=== PATIENT | male | born 1980 | race Caucasian/White ===

== ENCOUNTER 2024-02-24 10:27 | Inpatient (IN) | payer OTHER, SELFPAY ==
--- NOTE | ~2024-02-24 | XR_ITS ---
Clinical Indication: Sepsis PA and lateral views of the chest: Comparison: None Findings: The lungs are clear, without evidence of focal consolidation or pleural effusion. Cardiome diastinal silhouette is within normal limits. Bones and soft tissues are unremarkable. Impression: Normal chest. Reviewed, dictated and finalized at location . Impression: Normal chest.
--- NOTE | ~2024-02-24 | XR_ITS ---
EXAMINATION: XR finger 3rd RT min 2V DATE: 02/24/2024 14:04 INDICATION: Paronychia TECHNIQUE: Dorsal palmar, lateral and 2 oblique views of the right third digit were obtained COMPARISON: None FINDINGS: Bone alignment is normal. No fracture. Joint spaces are relatively preserved. There is an asymmetrica l contour with increased lucency along the ulnar side of the tuft of the right third distal phalanx a nd could not exclude early osteal lysis loosening of osteomyelitis. Focal soft tissue swelling at the right dorsum of the third distal phalanx. IMPRESSION: 1. Asymmetric cortical contour with increased lucency at the ulnar side of the tuft of the right thir d distal phalanx which raises some concern but is not definitive for osteomyelitis. Reviewed, dictated and finalized at location A. IMPRESSION: 1. Asymmetric cortical contour with increased lucency at the ulnar side of the tuft of the right third distal phalanx which raises some concern but is not def initive for osteomyelitis.
[2024-02-24 10:40] VITALS: BP 110/82; PULSE 82; RESP 15; TEMP 36.6; O2SAT 100
--- NOTE | 2024-02-24 13:01 | ED.SKABFB ---
HPI - Skin/Abscess/Foreign Bdy General Chief complaint: Skin/Abscess/Foreign Body Stated complaint: finger infection Time Seen by Provider: 02/24/24 13:01 Focused HPI: This is a 43 year old male that presents to the ER for right third finger infection. Reports this has been ongoing for a couple of weeks. Reports some drainage. He has not been treated for this yet. Denies fevers. GENERAL: Disheveled, well-nourished HEAD: Normocephalic, atraumatic. CHEST: Clear to auscultation. ?No respiratory distress. HEART: Regular rate and rhythm.? MUSCULOSKELETAL: Right third finger with pus present in the base of the proximal nail bed. Redness and swelling extending into the finger NEURO: ?Alert and oriented x3. Patient screened in triage and initial orders placed.? ?Additional care and disposition to be based upon?diagnostic testing and treatment. Related Data Allergies Allergy/AdvReac Type Severity Reaction Status Date / Time No Known Allergies Allergy Mild Verified 02/24/24 10:44 Course Vital Signs Vital signs: Vital Signs Temperature 97.9 F 02/24/24 10:40 Pulse Rate 82 02/24/24 10:40 Respiratory Rate 15 02/24/24 10:40 Blood Pressure 110/82 02/24/24 10:40 Pulse Oximetry 100 02/24/24 10:40 Oxygen Delivery Room Air 02/24/24 10:40 Temperature 97.9 F 02/24/24 10:40 Pulse Rate 82 02/24/24 10:40 Respiratory Rate 15 02/24/24 10:40 Blood Pressure 110/82 02/24/24 10:40 Pulse Oximetry 100 02/24/24 10:40 Oxygen Delivery Room Air 02/24/24 10:40 Discharge Plan Discharge Follow-up/Referrals: PHYSICIAN,TELEVISION TUBE INSPECTOR [Primary Care Provider] -
[2024-02-24 13:14] VITALS: BP 134/93; PULSE 100; RESP 20; TEMP 36.7; O2SAT 96
[2024-02-24 13:21] LABS: Basophils Absolute Auto 0.1 K/mm3 (0.0-0.1); Basophils Percent Auto 0.7 % (0.2-1.2); Eosinophils Absolute Auto 0.2 K/mm3 (0-0.3); Eosinophils Percent Auto 1.7 % (0-4.4); Hematocrit 44.1 % (42.0-52.0); Hemoglobin 15.1 g/dL (14.0-18.0); Immature Granulocyte Absolute 0.05 K/mm3 (0.00-0.031); Immature Granulocyte Percent A 0.4 % (0-0.5); Lymphocytes Absolute Auto 2.11 K/mm3 (0.9-3.2); Lymphocytes Percent Auto 16.2 % (18.3-44.2); Mean Corpuscular HGB Conc 34.2 g/dl (32-36); Mean Corpuscular Hemoglobin 29.9 pg (26-34); Mean Corpuscular Volume 87.3 fl (80-100); Mean Platelet Volume 10.1 fl (7.4-10.4); Monocytes Absolute Auto 1.5 K/mm3 (0.1-0.6); Monocytes Percent Auto 11.3 % (2.6-8.5); Neutrophils Absolute Auto 9.1 K/mm3 (1.3-6.7); Neutrophils Percent Auto 69.7 % (45.5-73.1); Platelet Count Result 358 k/mm3 (150-375); Red Blood Count 5.05 M/mm3 (4.6-6.20); Red Cell Distribution Width 12.2 % (11.5-14.5)
[2024-02-24 13:35] LABS: Anion Gap 13 mmol/L (4-12); Blood Urea Nitrogen 17 mg/dL (9-20); CRP 4.1 mg/dL (<1.0); Calcium 9.4 mg/dL (8.4-10.2); Carbon Dioxide 27 mmol/L (22-30); Chloride 97 mmol/L (98-107); Estimated CRCL calculation 77 ml/min; Estimated Glomerular Filt Rate > 60; Glucose 115 mg/dL (65-110); Potassium 3.7 mmol/L (3.4-5.0); Sodium 137 mmol/L (137-145)
--- NOTE | 2024-02-24 14:02 | ED.SKABFB ---
HPI - Skin/Abscess/Foreign Bdy General Chief complaint: Skin/Abscess/Foreign Body <Deepa Fuchs APRN - Last Filed: 02/24/24 17:24> Stated complaint: finger infection <Deepa Fuchs APRN - Last Filed: 02/24/24 17:24> Time Seen by Provider: 02/24/24 13:01 <Deepa Fuchs APRN - Last Filed: 02/24/24 17:24> Pt is a 43-year-old male who presents to the ER with complaints of a R 3rd digit infection that he has had for over a week. He reports he didn't shoot up in it but I think there might be some crack in there. Pt denies having taken PCP today but endorses using Meth yesterday. He reports his pain is 10/10 in his R finger. Pt also endorses a full body rash that is concentrated in his groin, but pt does not want [employer] to look at his groin. He denies chest pain, shortness of breath, and weakness/tingling/numbness on one side. <Deepa Fuchs APRN - Last Filed: 02/24/24 17:24> Related Data Home medications: Home Medications Medication Instructions Recorded Confirmed Unable to Obtain Home Medications 02/24/24 02/24/24 <Deepa Fuchs APRN - Last Filed: 02/24/24 17:24> Allergies/Adverse reactions: Allergies Allergy/AdvReac Type Severity Reaction Status Date / Time No Known Allergies Allergy Mild Verified 02/24/24 10:44 <Deepa Fuchs APRN - Last Filed: 02/24/24 17:24> Review of Systems Review of Systems: All systems reviewed & are unremarkable except as noted in HPI and below <Deepa Fuchs APRN - Last Filed: 02/24/24 17:24> COUNT INCLUDES THE [facility] Social History Social History: Social History Smoking status: Unknown if ever smoked Alcohol intake: unknown Substance use: current Substance use type: marijuana, crack/cocaine, methamphetamine and unknown Spiritual care concerns: No <Deepa Fuchs APRN - Last Filed: 02/24/24 17:24> Exam Narrative: GENERAL: Well-appearing, well-nourished but is acutely agitated. HEENT: Head normocephalic, atraumatic. Eyes pupils equal round and reactive to light, extraocular movements intact. NECK: Supple, normal range of motion, no JVD. No lymphadenopathy. CARDIAC: Regular rate and rhythm without murmurs, rubs or gallops. RESPIRATORY: Clear to auscultation bilaterally. No wheezes, rales or rhonchi. ABDOMEN: Soft, nontender, normoactive bowel sounds throughout, no guarding, no rebound. No masses appreciated. EXTREMITIES: Normal range of motion, no swelling, clubbing or other deformities. NEUROLOGICAL: Cranial nerves II through XII grossly intact, no focal deficits noted. Pt does have abnormal movements related to his drug use but is A & O x 4. SKIN: Warm, dry, normal color. Pt has a generalized rash (dispersed pimples) on his face, head, arms, legs. <Deepa Fuchs APRN - Last Filed: 02/24/24 17:24> Course [employer]AL/PA Physician Supervision Patient's HPI, Exam, and MDM were reviewed and I agreed with the workup and disposition done in the emergency department by the MLP. I was available for consultation, but was not directly involved with patient's care nor did I evaluate the patient. <Clarence Burnett MD - Last Filed: 02/24/24 18:55> Vital Signs Vital signs: Vital Signs Temperature 36.6 C 02/24/24 10:40 Pulse Rate 82 02/24/24 10:40 Respiratory Rate 15 02/24/24 10:40 Blood Pressure 110/82 02/24/24 10:40 Pulse Oximetry 100 02/24/24 10:40 Oxygen Delivery Room Air 02/24/24 10:40 Temperature 37.1 C 02/24/24 17:00 Pulse Rate 98 02/24/24 17:00 Respiratory Rate 20 02/24/24 17:00 Blood Pressure 129/85 02/24/24 17:00 Pulse Oximetry 94 02/24/24 17:00 Oxygen Delivery Room Air 02/24/24 10:40 <Deepa Fuchs APRN - Last Filed: 02/24/24 17:24> Vital Signs Temperature 36.6 C 02/24/24 10:40 Pulse Rate 82 02/24/24 10:40 Respiratory Rate 15 02/24/24 10:40 Blood Pressure 110/82
[2024-02-24 14:07] LABS: Amphetamine Screen Urine Negative (Negative); Barbiturate Screen Urine Negative (Negative); Benzodiazepines Screen Urine Negative (Negative); Cannabinoid Screen Urine Positive (Negative); Cocaine Screen Urine Positive (Negative); Methadone Screen Urine Negative (Negative); Opiate Screen Urine Negative (Negative); Phencyclidine Screen Urine Negative (Negative)
[2024-02-24] MEDS: VANCOMYCIN 1,500 MG/NS 500 ML 1,500 MG/500 ML BAG 250 MG IVPB (14:35)
[2024-02-24] MEDS: LORazepam INJ (*CRX) 2 MG/ML VIAL 1 MG IV PUSH (14:44)
[2024-02-24] MEDS: MORPHINE SULFATE (*CRX) 4 MG/ML INJ IV PUSH (14:45)
[2024-02-24] MEDS: SODIUM CHLORIDE 0.9% IV 1,000 ML 999 ML IV CONT (14:45)
[2024-02-24 14:46] LABS: Partial Thromboplastin Time 30.1 Seconds (22.3-36.8); Prothrombin Time 13.9 Seconds (11.1-14.7)
[2024-02-24 15:03] LABS: Lactic Acid Reflex 1.2 mmol/L (0.7-2.0)
[2024-02-24 15:08] LABS: Add Urine Microscopic? YES; Appearance Urine Clear (Clear); Bacteria Urine None Seen /hpf; Bilirubin Urine 2+ (Negative); Blood Urine Negative (Negative); Color Urine Dark Yellow (Yellow); Glucose Urine UA Negative (Negative); Ketones Urine Trace mg/dL (Negative); Leukocyte Esterase Ur Negative LEU/UL (Negative); Mucus Urine Present /lpf; Need Manual Microscopic Reviewed; Nitrate Urine Negative (Negative); Protein Urine 1+ mg/dL (Negative); RBC Urine 0-2 /hpf (0-2); Squamous Epithelial Cell Urine None Seen /hpf (Few); pH Urine 5.5 (5.0-9.0)
[2024-02-24] MEDS: MORPHINE SULFATE (*CRX) 2 MG/ML INJ IV PUSH (15:59)
[2024-02-24] MEDS: LIDOCAINE HCL 1% LOCAL INJ 10 ML VIAL INFILTRATE (16:02)
[2024-02-24 16:06] LABS: Erythrocyte Sedimentation Rate 38 mm/hr (0-20)
--- NOTE | 2024-02-24 16:17 | PM.IMHP ---
H&P: HPI History of Present Illness Date/Time: 02/24/24 16:17 Chief Complaint: Skin/abscess/foreign body Narrative: This is a 43-year-old male with a significant past medical history cocaine and methamphetamine abuse who presents with right hand 3rd digit infection that he has had for over a week. Patient was unable to provide past medical history or history of presenting illness. History of presenting illness was obtained from the EMR. He stated that he has had this wound for over a week and denies shooting up in that finger according to the ER documentation. Patient denied having CP however he did take meth yesterday. He reports 10/10 pain in that finger. Upon my assessment, he is alert to voice however has abnormal movements likely related to his drug use, and he is diaphoretic with ataxic movements. He denied any fever, chills,nausea, vomiting, diarrhea, abdominal pain, chest pain, shortness a breath. Workup in the hospital included a chest x-ray which was normal. Right 3rd finger x-ray showed asymmetrical cortical contour with increased lucency at the ulnar side of the left test of the right 3rd distal phalanx concern for possible osteomyelitis. Wound was drained in the ED patient was started on vancomycin. Plastic surgery was consulted. Review of Systems Review of Systems: All systems reviewed & are unremarkable except as noted in HPI and below Constitutional: Constitutional: Reports as per HPI and Reports no additional constitutional complaints Eyes: Eyes: Reports as per HPI and Reports no additional eye complaints ENT: Reports system reviewed and no additional complaints, except as documented and Reports as per HPI Cardiovascular: Cardiovascular: Reports as per HPI and Reports no additional cardiovascular complaints Respiratory: Respiratory: Reports as per HPI and Reports no additional respiratory complaints Gastrointestinal: Gastrointestinal: Reports as per HPI and Reports no additional gastrointestinal complaints Genitourinary: Genitourinary: Reports no additional male genitourinary complaints and Reports as per HPI Musculoskeletal: Musculoskeletal: Reports no additional musculoskeletal complaints and Reports as per HPI Integumentary/Breasts: Skin/Breast: Reports system reviewed and no additional complaints, except as docu and Reports as per HPI Neurologic: Reports system reviewed and no additional complaints, except as documented and Reports as per HPI Psychiatric: Psychiatric: Reports no additional psychiatric complaints and Reports as per HPI [facility] Past Medical History Medical History Cocaine abuse Marijuana abuse Methamphetamine abuse Social History Social History Smoking status: Unknown if ever smoked Alcohol intake: unknown Substance use: current Substance use type: marijuana, crack/cocaine, methamphetamine and unknown Spiritual care concerns: No Meds Home Medications and Allergies Home Medications Medication Instructions Recorded Confirmed Type Unable to Obtain Home Medications 02/24/24 02/24/24 History Allergies Allergy/AdvReac Type Severity Reaction Status Date / Time No Known Allergies Allergy Mild Verified 02/24/24 10:44 Vital Signs Vital Signs - 24 hr 02/24/24 10:40 02/24/24 13:14 Temperature 97.9 F 98.1 F Pulse Rate 82 100 Respiratory Rate 15 20 Blood Pressure 110/82 134/93 H Pulse Oximetry 100 96 Oxygen Delivery Room Air Exam Narrative: General: In no acute distress Head: atraumatic, no encephalopathy Eyes: EOMI, PERRLA, sclera injected ENT: moist mucous membranes, nasal passages clear Neck: supple, no JVD, no adenopathy, trachea midline Cardiac: Normal S1 and S2. Tachycardic, No murmur, gallops or friction rubs, peripheral pulses intact. Respiratory: Lungs clear to auscultation, no adventitious lung sounds, currently on room air G
--- NOTE | 2024-02-24 16:46 | ADMGEN ---
This patient, Edwin Francois, was admitted to Medical Room 343-01. Patient/family oriented to hospital policies and general routines including ID bracelet, bed and alarms, visiting hours, pain management, procedures, bathroom and other care routines, personal items, smoking policy, room service/diet, and visiting hours. Information on how to activate the Rapid Response Team has been discussed. Patient/Family are encouraged to report perceived risks to care and to ask questions if they do not understand what they are told or what they should do.
[2024-02-24 17:00] VITALS: BP 129/85; PULSE 98; RESP 20; TEMP 37.1; O2SAT 94
[2024-02-24 17:21] VITALS: O2SAT 94
[2024-02-24 20:00] VITALS: PULSE 82; RESP 18; O2SAT 97
[2024-02-24 22:20] VITALS: BMI 40.5
[2024-02-24 22:21] VITALS: BP 137/84; PULSE 82; RESP 18; TEMP 36.6; O2SAT 97
[2024-02-25 04:37] VITALS: BP 158/77; PULSE 84; RESP 18; TEMP 36.7; O2SAT 98
[2024-02-25 06:52] LABS: Basophils Absolute Auto 0.1 K/mm3 (0.0-0.1); Basophils Percent Auto 0.7 % (0.2-1.2); Eosinophils Absolute Auto 0.5 K/mm3 (0-0.3); Eosinophils Percent Auto 5.9 % (0-4.4); Hematocrit 44.7 % (42.0-52.0); Hemoglobin 14.6 g/dL (14.0-18.0); Immature Granulocyte Absolute 0.03 K/mm3 (0.00-0.031); Immature Granulocyte Percent A 0.3 % (0-0.5); Lymphocytes Absolute Auto 1.73 K/mm3 (0.9-3.2); Mean Corpuscular HGB Conc 32.7 g/dl (32-36); Mean Corpuscular Hemoglobin 29.2 pg (26-34); Mean Corpuscular Volume 89.4 fl (80-100); Mean Platelet Volume 10.3 fl (7.4-10.4); Monocytes Absolute Auto 0.9 K/mm3 (0.1-0.6); Monocytes Percent Auto 10.8 % (2.6-8.5); Neutrophils Absolute Auto 5.4 K/mm3 (1.3-6.7); Neutrophils Percent Auto 62.3 % (45.5-73.1); Platelet Count Result 330 k/mm3 (150-375); Red Cell Distribution Width 12.4 % (11.5-14.5); White Blood Count 8.7 K/mm3 (4.5-10.0)
[2024-02-25 07:03] LABS: Alanine Aminotransferase 22 U/L (6-50); Alkaline Phosphatase 49 U/L (38-126); Anion Gap 9 mmol/L (4-12); Aspartate Amino Transferase 23 U/L (17-59); Bilirubin,Total 0.4 mg/dL (0.2-1.3); Blood Urea Nitrogen 14 mg/dL (9-20); Calcium 8.7 mg/dL (8.4-10.2); Carbon Dioxide 30 mmol/L (22-30); Chloride 99 mmol/L (98-107); Estimated CRCL calculation 135 ml/min; Estimated Glomerular Filt Rate > 60; Glucose 107 mg/dL (65-110); Potassium 3.3 mmol/L (3.4-5.0); Sodium 138 mmol/L (137-145)
[2024-02-25] MEDS: VANCOMYCIN 1,500 MG/NS 500 ML 1,500 MG/500 ML BAG 250 MG IVPB ×2 (08:23→20:12)
--- NOTE | 2024-02-25 08:48 | P.PNIM_ITS ---
Progress Note: A&P Assessment and Plan (1) Abscess around fingernail of right hand: Code(s): L03.011 - Cellulitis of right finger Status: Acute (2) Paronychia: Status: Acute Plan This is a 43-year-old male with a significant past medical history cocaine and methamphetamine abuse who presents with right hand 3rd digit infection that he has had for over a week. (1) Abscess around fingernail of right hand: Code(s): L03.011 - Cellulitis of right finger Status: Acute Assessment and Plan: 02/24/24: * Paronychia to 3rd digit of right hand * X-ray of right hand, 3rd digit shown asymmetric cortical contour with increased lucency at the ulnar side of the tuft of the right 3rd distal phalanx raising concern for possible osteomyelitis * Abscess was drained in the ED * Patient was started on vancomycin, continue monotherapy * Continue pain control * Plastic surgery consulted Blood culture negative Will obtain wound culture from the abscess continue current antibiotics (2) Paronychia: Status: Acute Assessment and Plan: see above (3) Methamphetamine abuse: Code(s): F15.10 - Other stimulant abuse, uncomplicated Status: Inactive Assessment and Plan: 02/24/24: * Reports he last used yesterday * Watched for withdrawal symptoms * Ativan ordered q.6 hours for agitation (4) Cocaine abuse: Code(s): F14.10 - Cocaine abuse, uncomplicated Status: Inactive Assessment and Plan: Of note I have discussed patient about risk of using illicit drugs, advised patient stop using illicit drugs patient except my advice Subjective Date/time seen: 02/25/24 08:48 Interval history: I saw and examined patient. Patient is afebrile overnight, blood pressure stable, no O2 saturation, pain is tolerable, denies chest pain, palpitation Review of Systems Review of Systems: ROS negative except above Exam Narrative: GENERAL: Pleasant, in no acute distress. Well-nourished. - EYES: EOMI. Anicteric. - HENT: Moist mucous membranes. - LUNGS: Clear to auscultation bilateral ly, no wheezing, rhonchi, or rales. - CARDIOVASCULAR: Regular rate and rhyth m. No murmur. No JVD. - ABDOMEN: Soft, non-tender and non-dist ended. No palpable masses. - EXTREMITIES: No edema. Peripheral puls es 2+. Non-tender. - NEUROLOGIC: No focal neurological defi cits. CN II-XII grossly intact. - PSYCHIATRIC: Awake, Alert and oriented x 3. Appropriate mood and affect. - SKIN: Swelling, tender, erythema, rig ht hand 3rd finger - LYMPH: No cervical lymphadenopathy. Objective Data Vital Signs Vital Signs: Vital Signs - 24 hr 02/24/24 10:40 02/24/24 13:14 02/24/24 17:00 Temperature 97.9 F 98.1 F 98.7 F Pulse Rate 82 100 98 Respiratory Rate 15 20 20 Blood Pressure 110/82 134/93 H 129/85 Pulse Oximetry 100 96 94 Oxygen Delivery Room Air 02/24/24 17:21 02/24/24 22:21 02/24/24 20:00
--- NOTE | 2024-02-25 08:48 | PM.IMPN ---
Progress Note: A&P Assessment and Plan (1) Abscess around fingernail of right hand: Code(s): L03.011 - Cellulitis of right finger Status: Acute (2) Paronychia: Status: Acute Plan This is a 43-year-old male with a significant past medical history cocaine and methamphetamine abuse who presents with right hand 3rd digit infection that he has had for over a week. (1) Abscess around fingernail of right hand: Code(s): L03.011 - Cellulitis of right finger Status: Acute Assessment and Plan: 02/24/24: Paronychia to 3rd digit of right hand X-ray of right hand, 3rd digit shown asymmetric cortical contour with increased lucency at the ulnar side of the tuft of the right 3rd distal phalanx raising concern for possible osteomyelitis Abscess was drained in the ED Patient was started on vancomycin, continue monotherapy Continue pain control Plastic surgery consulted Blood culture negative Will obtain wound culture from the abscess continue current antibiotics (2) Paronychia: Status: Acute Assessment and Plan: see above (3) Methamphetamine abuse: Code(s): F15.10 - Other stimulant abuse, uncomplicated Status: Inactive Assessment and Plan: 02/24/24: Reports he last used yesterday Watched for withdrawal symptoms Ativan ordered q.6 hours for agitation (4) Cocaine abuse: Code(s): F14.10 - Cocaine abuse, uncomplicated Status: Inactive Assessment and Plan: Of note I have discussed patient about risk of using illicit drugs, advised patient stop using illicit drugs patient except my advice Subjective Date/time seen: 02/25/24 08:48 Interval history: I saw and examined patient. Patient is afebrile overnight, blood pressure stable, no O2 saturation, pain is tolerable, denies chest pain, palpitation Review of Systems Review of Systems: ROS negative except above Exam Narrative: GENERAL: Pleasant, in no acute distress. Well-nourished. - EYES: EOMI. Anicteric. - HENT: Moist mucous membranes. - LUNGS: Clear to auscultation bilaterally, no wheezing, rhonchi, or rales. - CARDIOVASCULAR: Regular rate and rhythm. No murmur. No JVD. - ABDOMEN: Soft, non-tender and non-distended. No palpable masses. - EXTREMITIES: No edema. Peripheral pulses 2+. Non-tender. - NEUROLOGIC: No focal neurological deficits. CN II-XII grossly intact. - PSYCHIATRIC: Awake, Alert and oriented x 3. Appropriate mood and affect. - SKIN: Swelling, tender, erythema, right hand 3rd finger - LYMPH: No cervical lymphadenopathy. Objective Data Vital Signs Vital Signs: Vital Signs - 24 hr 02/24/24 10:40 02/24/24 13:14 02/24/24 17:00 Temperature 97.9 F 98.1 F 98.7 F Pulse Rate 82 100 98 Respiratory Rate 15 20 20 Blood Pressure 110/82 134/93 H 129/85 Pulse Oximetry 100 96 94 Oxygen Delivery Room Air 02/24/24 17:21 02/24/24 22:21 02/24/24 20:00 Temperature 98 F Pulse Rate 82 82 Respiratory Rate 18 18 Blood Pressure 137/84 Pulse Oximetry 94 97 97 Oxygen Delivery Room Air Room Air 02/25/24 04:37 Temperature 98.1 F Pulse Rate 84 Respiratory Rate 18 Blood Pressure 158/77 H Pulse Oximetry 98 Oxygen Delivery Intake/Output Intake/Output: Intake & Output 02/22/24 02/23/24 02/24/24 02/25/24 23:59 23:59 23:59 23:59 Intake Total 2100 500 Balance 2100 500 Meds/Results Medications: Active Medications Generic Name Dose Route Start Last Admin Trade Name Andree PRN Reason Stop Dose Admin Acetaminophen 650 mg 02/24/24 15:06 Acetaminophen 325 Mg Tablet PO Q4H PRN Mild Pain (1-3) or Fever Hydrocodone Bitart/Acetaminophen 1 tab 02/24/24 17:20 Hydrocodone/Acetaminophen (*Crx) 5-325 Mg Tablet PO Q4H PRN Moderate Pain (4-6) Vancomycin HCl 1,500 mg in 500 mls @ 250 mls/hr 02/25/24 08:00 02/25/24 08:23 Vancomycin 1,500 Mg/Ns 500 Ml IVPB 250 mls/hr Q12H [facility] Administrat
[2024-02-25] MEDS: MORPHINE SULFATE (*CRX) 2 MG/ML INJ IV PUSH (09:38)
[2024-02-25 14:08] VITALS: BP 138/83; PULSE 85; RESP 20; TEMP 36.9; O2SAT 98
[2024-02-25] MEDS: LORazepam INJ (*CRX) 2 MG/ML VIAL 0.5 MG IV PUSH (20:17)
[2024-02-25 20:31] VITALS: BP 137/81; PULSE 92; RESP 18; TEMP 36.6; O2SAT 99
[2024-02-26 04:15] VITALS: BP 127/73; PULSE 72; RESP 18; TEMP 36.4; O2SAT 98
[2024-02-26 05:53] LABS: Basophils Absolute Auto 0.1 K/mm3 (0.0-0.1); Eosinophils Absolute Auto 0.7 K/mm3 (0-0.3); Eosinophils Percent Auto 8.1 % (0-4.4); Hematocrit 43.3 % (42.0-52.0); Hemoglobin 13.9 g/dL (14.0-18.0); Immature Granulocyte Absolute 0.04 K/mm3 (0.00-0.031); Immature Granulocyte Percent A 0.5 % (0-0.5); Lymphocytes Absolute Auto 2.42 K/mm3 (0.9-3.2); Lymphocytes Percent Auto 27.3 % (18.3-44.2); Mean Corpuscular HGB Conc 32.1 g/dl (32-36); Mean Corpuscular Hemoglobin 29.1 pg (26-34); Mean Corpuscular Volume 90.6 fl (80-100); Mean Platelet Volume 10.5 fl (7.4-10.4); Monocytes Absolute Auto 0.8 K/mm3 (0.1-0.6); Monocytes Percent Auto 9.2 % (2.6-8.5); Neutrophils Absolute Auto 4.8 K/mm3 (1.3-6.7); Neutrophils Percent Auto 53.9 % (45.5-73.1); Platelet Count Result 321 k/mm3 (150-375); Red Blood Count 4.78 M/mm3 (4.6-6.20); Red Cell Distribution Width 12.2 % (11.5-14.5); White Blood Count 8.9 K/mm3 (4.5-10.0)
[2024-02-26 06:09] LABS: Alanine Aminotransferase 18 U/L (6-50); Albumin Level 3.6 g/dL (3.5-5.1); Alkaline Phosphatase 61 U/L (38-126); Anion Gap 10 mmol/L (4-12); Aspartate Amino Transferase 20 U/L (17-59); Bilirubin,Total 0.2 mg/dL (0.2-1.3); Blood Urea Nitrogen 11 mg/dL (9-20); Calcium 8.4 mg/dL (8.4-10.2); Carbon Dioxide 24 mmol/L (22-30); Chloride 103 mmol/L (98-107); Estimated CRCL calculation 153 ml/min; Estimated Glomerular Filt Rate > 60; Glucose 128 mg/dL (65-110); Potassium 3.8 mmol/L (3.4-5.0); Sodium 137 mmol/L (137-145)
--- NOTE | 2024-02-26 08:44 | P.PNIM_ITS ---
Progress Note: A&P Assessment and Plan (1) Abscess around fingernail of right hand: Code(s): L03.011 - Cellulitis of right finger Status: Acute (2) Paronychia: Status: Acute Plan This is a 43-year-old male with a significant past medical history cocaine and methamphetamine abuse who presents with right hand 3rd digit infection that he has had for over a week. (1) Abscess around fingernail of right hand: Code(s): L03.011 - Cellulitis of right finger Status: Acute Assessment and Plan: 02/24/24: * Paronychia to 3rd digit of right hand * X-ray of right hand, 3rd digit shown asymmetric cortical contour with increased lucency at the ulnar side of the tuft of the right 3rd distal phalanx raising concern for possible osteomyelitis * Abscess was drained in the ED * Patient was started on vancomycin, continue monotherapy * Continue pain control * Plastic surgery consulted Blood culture negative obtained wound culture from the abscess Pending report continue current antibiotics (2) Paronychia: Status: Acute Assessment and Plan: see above (3) Methamphetamine abuse: Code(s): F15.10 - Other stimulant abuse, uncomplicated Status: Inactive Assessment and Plan: 02/24/24: * Reports he last used yesterday * Watched for withdrawal symptoms * Ativan ordered q.6 hours for agitation (4) Cocaine abuse: Code(s): F14.10 - Cocaine abuse, uncomplicated Status: Inactive Assessment and Plan: Of note I have discussed patient about risk of using illicit drugs, advised patient stop using illicit drugs patient except my advice Produced discharge patient in 24 hours Subjective Date/time seen: 02/26/24 08:44 Interval history: I saw and examined patient. Patient is afebrile overnight, blood pressure stable, no O2 saturation, pain is tolerable, denies chest pain, palpitation, wound cultures pending, affected finger still swelling, but states subsiding Exam Narrative: GENERAL: Pleasant, in no acute distress. Well-nourished. - EYES: EOMI. Anicteric. - HENT: Moist mucous membranes. - LUNGS: Clear to auscultation bilateral ly, no wheezing, rhonchi, or rales. - CARDIOVASCULAR: Regular rate and rhyth m. No murmur. No JVD. - ABDOMEN: Soft, non-tender and non-dist ended. No palpable masses. - EXTREMITIES: No edema. Peripheral puls es 2+. Non-tender. - NEUROLOGIC: No focal neurological defi cits. CN II-XII grossly intact. - PSYCHIATRIC: Awake, Alert and oriented x 3. Appropriate mood and affect. - SKIN: Swelling, tender, erythema, rig ht hand 3rd finger - LYMPH: No cervical lymphadenopathy. Objective Data Vital Signs Vital Signs: Vital Signs - 24 hr 02/25/24 14:08 02/25/24 20:31 02/26/24 04:15 Temperature 98.5 F 98 F 97.6 F Pulse Rate 85 92 72 Respiratory Rate 20 18 18 Blood Pressure 138/83 137/81 127/73 Pulse Oximetry 98 99 98 Intake/Output Intake/Output: Int
--- NOTE | 2024-02-26 08:44 | PM.IMPN ---
Progress Note: A&P Assessment and Plan (1) Abscess around fingernail of right hand: Code(s): L03.011 - Cellulitis of right finger Status: Acute (2) Paronychia: Status: Acute Plan This is a 43-year-old male with a significant past medical history cocaine and methamphetamine abuse who presents with right hand 3rd digit infection that he has had for over a week. (1) Abscess around fingernail of right hand: Code(s): L03.011 - Cellulitis of right finger Status: Acute Assessment and Plan: 02/24/24: Paronychia to 3rd digit of right hand X-ray of right hand, 3rd digit shown asymmetric cortical contour with increased lucency at the ulnar side of the tuft of the right 3rd distal phalanx raising concern for possible osteomyelitis Abscess was drained in the ED Patient was started on vancomycin, continue monotherapy Continue pain control Plastic surgery consulted Blood culture negative obtained wound culture from the abscess Pending report continue current antibiotics (2) Paronychia: Status: Acute Assessment and Plan: see above (3) Methamphetamine abuse: Code(s): F15.10 - Other stimulant abuse, uncomplicated Status: Inactive Assessment and Plan: 02/24/24: Reports he last used yesterday Watched for withdrawal symptoms Ativan ordered q.6 hours for agitation (4) Cocaine abuse: Code(s): F14.10 - Cocaine abuse, uncomplicated Status: Inactive Assessment and Plan: Of note I have discussed patient about risk of using illicit drugs, advised patient stop using illicit drugs patient except my advice Produced discharge patient in 24 hours Subjective Date/time seen: 02/26/24 08:44 Interval history: I saw and examined patient. Patient is afebrile overnight, blood pressure stable, no O2 saturation, pain is tolerable, denies chest pain, palpitation, wound cultures pending, affected finger still swelling, but states subsiding Exam Narrative: GENERAL: Pleasant, in no acute distress. Well-nourished. - EYES: EOMI. Anicteric. - HENT: Moist mucous membranes. - LUNGS: Clear to auscultation bilaterally, no wheezing, rhonchi, or rales. - CARDIOVASCULAR: Regular rate and rhythm. No murmur. No JVD. - ABDOMEN: Soft, non-tender and non-distended. No palpable masses. - EXTREMITIES: No edema. Peripheral pulses 2+. Non-tender. - NEUROLOGIC: No focal neurological deficits. CN II-XII grossly intact. - PSYCHIATRIC: Awake, Alert and oriented x 3. Appropriate mood and affect. - SKIN: Swelling, tender, erythema, right hand 3rd finger - LYMPH: No cervical lymphadenopathy. Objective Data Vital Signs Vital Signs: Vital Signs - 24 hr 02/25/24 14:08 02/25/24 20:31 02/26/24 04:15 Temperature 98.5 F 98 F 97.6 F Pulse Rate 85 92 72 Respiratory Rate 20 18 18 Blood Pressure 138/83 137/81 127/73 Pulse Oximetry 98 99 98 Intake/Output Intake/Output: Intake & Output 02/23/24 02/24/24 02/25/24 02/26/24 23:59 23:59 23:59 23:59 Intake Total 2100 2460 1100 Balance 2100 2460 1100 Meds/Results Medications: Active Medications Generic Name Dose Route Start Last Admin Trade Name Freq PRN Reason Stop Dose Admin Acetaminophen 650 mg 02/24/24 15:06 Acetaminophen 325 Mg Tablet PO Q4H PRN Mild Pain (1-3) or Fever Hydrocodone Bitart/Acetaminophen 1 tab 02/24/24 17:20 Hydrocodone/Acetaminophen (*Crx) 5-325 Mg Tablet PO Q4H PRN Moderate Pain (4-6) Vancomycin HCl 1,500 mg in 500 mls @ 250 mls/hr 02/25/24 08:00 02/25/24 22:12 Vancomycin 1,500 Mg/Ns 500 Ml IVPB Infused Q12H [facility]OOKE Infusion Lorazepam 0.5 mg 02/24/24 22:16 02/25/24 20:17 Lorazepam Inj (*Crx) 2 Mg/Ml Vial IV PUSH 0.5 mg Q6H PRN Administration AGITATION Morphine Sulfate 2 mg 02/24/24 15:06 02/25/24 09:38 Morphine Sulfate (*Crx) 2 Mg/Ml Inj IV PUSH 2 mg Q2H PRN Administration Pain Rated 7-10
[2024-02-26 09:03] LABS: Vancomycin Trough 6.5 ug/mL (10.0-20.0)
[2024-02-26] MEDS: VANCOMYCIN 1,500 MG/NS 500 ML 1,500 MG/500 ML BAG 250 MG IVPB ×2 (10:04→17:51)
[2024-02-26] MEDS: HYDROcodone/acetaminophen (*CRX) 5-325 MG TABLET 1 TAB PO (11:28)
[2024-02-26 21:27] VITALS: BP 153/92; PULSE 78; RESP 18; TEMP 37.1; O2SAT 97
[2024-02-27] MEDS: VANCOMYCIN 1,500 MG/NS 500 ML 1,500 MG/500 ML BAG 250 MG IVPB ×3 (01:22→17:11)
[2024-02-27] MEDS: HYDROcodone/acetaminophen (*CRX) 5-325 MG TABLET 1 TAB PO ×2 (01:27→10:36)
[2024-02-27 06:00] VITALS: BP 136/90; PULSE 77; RESP 20; TEMP 36.1; O2SAT 98
--- NOTE | 2024-02-27 08:04 | P.PNIM_ITS ---
Progress Note: A&P Assessment and Plan (1) Abscess around fingernail of right hand: Code(s): L03.011 - Cellulitis of right finger Status: Acute (2) Paronychia: Status: Acute Plan This is a 43-year-old male with a significant past medical history cocaine and methamphetamine abuse who presents with right hand 3rd digit infection that he has had for over a week. (1) Abscess around fingernail of right hand: Code(s): L03.011 - Cellulitis of right finger Status: Acute Assessment and Plan: 02/24/24: * Paronychia to 3rd digit of right hand * X-ray of right hand, 3rd digit shown asymmetric cortical contour with increased lucency at the ulnar side of the tuft of the right 3rd distal phalanx raising concern for possible osteomyelitis * Abscess was drained in the ED * Patient was started on vancomycin, continue monotherapy * Continue pain control * Plastic surgery consulted Blood culture negative obtained wound culture from the abscess Pending report continue current antibiotics 02/26 Gram positive cocci from wound culture. Plastic surgery consulted, and the still not performed, abscess persists, consult general surgeon for evaluation and treat (2) Paronychia: Status: Acute Assessment and Plan: see above (3) Methamphetamine abuse: Code(s): F15.10 - Other stimulant abuse, uncomplicated Status: Inactive Assessment and Plan: 02/24/24: * Reports he last used yesterday * Watched for withdrawal symptoms * Ativan ordered q.6 hours for agitation (4) Cocaine abuse: Code(s): F14.10 - Cocaine abuse, uncomplicated Status: Inactive Assessment and Plan: Of note I have discussed patient about risk of using illicit drugs, advised patient stop using illicit drugs patient except my advice Patient had argument with patient mother today, he was not happy after conversat ion. But Patient denied any ideation of suicide attempt and plans Subjective Date/time seen: 02/27/24 08:04 Interval history: I saw and examined patient. Patient is afebrile overnight, blood pressure stable, no O2 saturation, pain is tolerable, denies chest pain, palpitation, wound cultures pending growing gram-positive cocci, affected finger still swelling Exam Narrative: GENERAL: Pleasant, in no acute distress. Well-nourished. - EYES: EOMI. Anicteric. - HENT: Moist mucous membranes. - LUNGS: Clear to auscultation bilateral ly, no wheezing, rhonchi, or rales. - CARDIOVASCULAR: Regular rate and rhyth m. No murmur. No JVD. - ABDOMEN: Soft, non-tender and non-dist ended. No palpable masses. - EXTREMITIES: No edema. Peripheral puls es 2+. Non-tender. - NEUROLOGIC: No focal neurological defi cits. CN II-XII grossly intact. - PSYCHIATRIC: Awake, Alert and oriented x 3. Appropriate mood and affect. - SKIN: Swelling, tender, erythema, rig ht hand 3rd finger - LYMPH: No cervical lymphadenopathy. Objective Data Vital Signs Vital Signs: Vital Signs - 24 hr 02/26/24 09:00 02/26/24 21:27 08
--- NOTE | 2024-02-27 08:04 | PM.IMPN ---
Progress Note: A&P Assessment and Plan (1) Abscess around fingernail of right hand: Code(s): L03.011 - Cellulitis of right finger Status: Acute (2) Paronychia: Status: Acute Plan This is a 43-year-old male with a significant past medical history cocaine and methamphetamine abuse who presents with right hand 3rd digit infection that he has had for over a week. (1) Abscess around fingernail of right hand: Code(s): L03.011 - Cellulitis of right finger Status: Acute Assessment and Plan: 02/24/24: Paronychia to 3rd digit of right hand X-ray of right hand, 3rd digit shown asymmetric cortical contour with increased lucency at the ulnar side of the tuft of the right 3rd distal phalanx raising concern for possible osteomyelitis Abscess was drained in the ED Patient was started on vancomycin, continue monotherapy Continue pain control Plastic surgery consulted Blood culture negative obtained wound culture from the abscess Pending report continue current antibiotics 02/26 Gram positive cocci from wound culture. Plastic surgery consulted, and the still not performed, abscess persists, consult general surgeon for evaluation and treat (2) Paronychia: Status: Acute Assessment and Plan: see above (3) Methamphetamine abuse: Code(s): F15.10 - Other stimulant abuse, uncomplicated Status: Inactive Assessment and Plan: 02/24/24: Reports he last used yesterday Watched for withdrawal symptoms Ativan ordered q.6 hours for agitation (4) Cocaine abuse: Code(s): F14.10 - Cocaine abuse, uncomplicated Status: Inactive Assessment and Plan: Of note I have discussed patient about risk of using illicit drugs, advised patient stop using illicit drugs patient except my advice Patient had argument with patient mother today, he was not happy after conversation. But Patient denied any ideation of suicide attempt and plans Subjective Date/time seen: 02/27/24 08:04 Interval history: I saw and examined patient. Patient is afebrile overnight, blood pressure stable, no O2 saturation, pain is tolerable, denies chest pain, palpitation, wound cultures pending growing gram-positive cocci, affected finger still swelling Exam Narrative: GENERAL: Pleasant, in no acute distress. Well-nourished. - EYES: EOMI. Anicteric. - HENT: Moist mucous membranes. - LUNGS: Clear to auscultation bilaterally, no wheezing, rhonchi, or rales. - CARDIOVASCULAR: Regular rate and rhythm. No murmur. No JVD. - ABDOMEN: Soft, non-tender and non-distended. No palpable masses. - EXTREMITIES: No edema. Peripheral pulses 2+. Non-tender. - NEUROLOGIC: No focal neurological deficits. CN II-XII grossly intact. - PSYCHIATRIC: Awake, Alert and oriented x 3. Appropriate mood and affect. - SKIN: Swelling, tender, erythema, right hand 3rd finger - LYMPH: No cervical lymphadenopathy. Objective Data Vital Signs Vital Signs: Vital Signs - 24 hr 02/26/24 09:00 02/26/24 21:27 02/27/24 06:00 Temperature 98.8 F 97.0 F L Pulse Rate 78 77 Respiratory Rate 18 20 Blood Pressure 153/92 H 136/90 Pulse Oximetry 97 98 Oxygen Delivery Room Air Intake/Output Intake/Output: Intake & Output 02/24/24 02/25/24 02/26/24 02/27/24 23:59 23:59 23:59 23:59 Intake Total 2100 2460 4580 1000 Balance 2100 2460 4580 1000 Meds/Results Medications: Active Medications Generic Name Dose Route Start Last Admin Trade Name Freq PRN Reason Stop Dose Admin Acetaminophen 650 mg 02/24/24 15:06 Acetaminophen 325 Mg Tablet PO Q4H PRN Mild Pain (1-3) or Fever Hydrocodone Bitart/Acetaminophen 1 tab 02/24/24 17:20 02/27/24 01:27 Hydrocodone/Acetaminophen (*Crx) 5-325 Mg Tablet PO 1 tab Q4H PRN Administration Moderate Pain (4-6) Vancomycin HCl 1,500 mg in 500 mls @ 250 mls/hr 02/26/24 10:00 02/27/24 03:22 Vancomycin 1,500 Mg/Ns 500 Ml
[2024-02-27 08:57] LABS: Basophils Absolute Auto 0.1 K/mm3 (0.0-0.1); Basophils Percent Auto 1.5 % (0.2-1.2); Eosinophils Absolute Auto 0.9 K/mm3 (0-0.3); Eosinophils Percent Auto 9.5 % (0-4.4); Hematocrit 45.3 % (42.0-52.0); Hemoglobin 14.7 g/dL (14.0-18.0); Immature Granulocyte Absolute 0.06 K/mm3 (0.00-0.031); Immature Granulocyte Percent A 0.7 % (0-0.5); Lymphocytes Absolute Auto 2.44 K/mm3 (0.9-3.2); Lymphocytes Percent Auto 26.6 % (18.3-44.2); Mean Corpuscular HGB Conc 32.5 g/dl (32-36); Mean Corpuscular Hemoglobin 29.8 pg (26-34); Mean Corpuscular Volume 91.7 fl (80-100); Mean Platelet Volume 10.1 fl (7.4-10.4); Monocytes Absolute Auto 0.8 K/mm3 (0.1-0.6); Monocytes Percent Auto 9.1 % (2.6-8.5); Neutrophils Absolute Auto 4.8 K/mm3 (1.3-6.7); Neutrophils Percent Auto 52.6 % (45.5-73.1); Platelet Count Result 354 k/mm3 (150-375); Red Blood Count 4.94 M/mm3 (4.6-6.20); Red Cell Distribution Width 12.4 % (11.5-14.5); White Blood Count 9.2 K/mm3 (4.5-10.0)
[2024-02-27 09:47] LABS: Alanine Aminotransferase 20 U/L (6-50); Albumin Level 3.8 g/dL (3.5-5.1); Alkaline Phosphatase 68 U/L (38-126); Anion Gap 8 mmol/L (4-12); Aspartate Amino Transferase 21 U/L (17-59); Bilirubin,Total 0.2 mg/dL (0.2-1.3); Blood Urea Nitrogen 10 mg/dL (9-20); Calcium 8.5 mg/dL (8.4-10.2); Carbon Dioxide 24 mmol/L (22-30); Chloride 104 mmol/L (98-107); Estimated CRCL calculation 121 ml/min; Estimated Glomerular Filt Rate > 60; Glucose 101 mg/dL (65-110); Potassium 4.5 mmol/L (3.4-5.0); Sodium 136 mmol/L (137-145)
[2024-02-27 09:49] LABS: Vancomycin Trough 12.6 ug/mL (10.0-20.0)
--- NOTE | 2024-02-27 10:07 | PC.NURSE ---
Patient's mother states patient called her with suicidal comments threatening to harm himself after being fired from his employer. Patient refusing to participate in my [place] screening and states his mother is lying. Dr. Almanza aware, evaluated patient himself and states patient denies these thoughts and comments. Care coordination notified for possible resources for patient.
--- NOTE | 2024-02-27 12:36 | PM.CNGS ---
Assessment and Plan Assessment and plan (1) Paronychia: Status: Acute Assessment and Plan: Extensive abscess proximal to nail and extending to ulnar aspect of 3rd finger distal phalanx right hand. Will debride and drain with digital block at bedside. Explained procedure to patient who agrees to go ahead. (2) Abscess around fingernail of right hand: Code(s): L03.011 - Cellulitis of right finger Status: Acute Assessment and Plan: Persistent abscess but will need unroofing and debridement to drain adequately. Appears to stem from paronychia. (3) Staphylococcus infection: Code(s): B95.8 - Unspecified staphylococcus as the cause of diseases classified elsewhere Status: Acute Assessment and Plan: Growing staph and strep. Sensitivities pending regarding possible MRSA. History of Present Illness Consult details Consult date: 02/27/24 Requesting physician: Garcia Almanza MD Narrative: Patient is a 43-year-old polysubstance abuser who came to the emergency room on 02/24/2024. He had a right 3rd finger distal phalanx abscess. It was incised and drained in the emergency room and patient was admitted. There was a miscommunication with the plastic surgeon and he is now out of town but was unaware he would be needing to see the patient. I was consulted to see the patient and provide further care for the distal phalanx abscess and infection. Wound cultures are showing a polymicrobial infection of both Staph aureus and streptococci. Patient has been on vancomycin and has been afebrile. He reports the finger is still painful and has been swollen. White blood cell count was 50507 initially in the emergency room but has been normal since then. Patient reports the finger began swelling and becoming painful about 2 weeks ago. He denies having tried to inject into the finger but did tell the emergency room doctor he thinks there may be some cocaine in there. I did awaken him from sleep when I came to the room and he has been slowly awakening. He does not have much recollection of the finger infection or his treatment. Review of Systems Review of Systems: All systems reviewed & are unremarkable except as noted in HPI and below (HPI) PMFSH Past Medical History Medical History Cocaine abuse Marijuana abuse Methamphetamine abuse Social History Social History Smoking status: Unknown if ever smoked Alcohol intake: unknown Substance use: current Substance use type: marijuana, crack/cocaine, methamphetamine and unknown Spiritual care concerns: No Meds Home Medications and Allergies Home Medications Medication Instructions Recorded Confirmed Type Unable to Obtain Home Medications 02/24/24 02/24/24 History Allergies Allergy/AdvReac Type Severity Reaction Status Date / Time No Known Allergies Allergy Mild Verified 02/24/24 10:44 Vital Signs Vital Signs - 24 hr 02/26/24 21:27 02/27/24 06:00 02/27/24 08:00 Temperature 37.1 C 36.1 C L Pulse Rate 78 77 Respiratory Rate 18 20 Blood Pressure 153/92 H 136/90 Pulse Oximetry 97 98 Oxygen Delivery Room Air Exam Const: General: comfortable, no acute distress, awake, lethargic, tired appearing and average body habitus Orientation/consciousness: confusion and lethargic HENMT: Head: normocephalic and atraumatic Mouth: Yes Normal oral and palatal mucosa present Eyes: Conjunctivae: conjunctivae normal Pupils: Equal, round and reactive pupils present EOM: EOMs intact bilaterally Neck: Neck: normal visual inspection, no lymphadenopathy and nontender Resp: Effort & Inspection: normal respiratory effort Auscultation: clear to auscultation bilaterally Cardio: Rate: regular rate Rhythm: regular rhythm Heart sounds: no gallops, no murmurs and no rubs GI: Inspection: non-distended GI Palp: Yes Soft to pa
[2024-02-27] MEDS: LORazepam INJ (*CRX) 2 MG/ML VIAL 1 MG IV PUSH ×2 (14:16→14:25)
[2024-02-27] MEDS: NICOTINE (*PBKC) 14 MG PATCH 1 PATCH TRANSDERM (14:18)
--- NOTE | 2024-02-27 14:59 | W.PM.PROC2 ---
Procedure Note - Detailed Date of Procedure 02/27/24 Pre-op Diagnosis Complex Paronychia right 3rd finger Post-op Diagnosis Same Procedure Performed Excisional debridement skin and subcutaneous with drainage of complex paronychia Surgeon Sandoval Smith MD Anesthesia Local (1% lidocaine plain, 20 cc) Indications Patient presented to the emergency room 3 days ago with a right 3rd finger paronychia. This was incised and drained in the emergency room. He was admitted and started on IV vancomycin. Unfortunately the infection has not drained adequately and further debridement and drainage is needed. 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 Necrotic skin and subcutaneous deep to this in same area. Description of Procedure Patient was in his hospital bed. A sterile field was created on the bedside table. The base of the right 3rd finger was cleaned with alcohol wipes. 1% lidocaine was infiltrated into the radial and ulnar are side of the proximal right 3rd finger performing a digital block. The rest of the finger was then prepped with ChloraPrep and sterile drapes placed around it. I tested the finger with a needle and there was no sensation. I 1st dissected the overlying necrotic epithelium off of the ulnar side and proximal aspect of the nail bed. I cultured the purulent fluid underneath. This was sent for aerobes and anaerobes. I then dissected on the ulnar side to the edge of the nail proximally. There was quite a bit of necrotic skin and subcutaneous all around the area from the persistent infection. I debrided this sharply and removed the necrotic tissue. I then undermined the ulnar edge of the nail proximally to facilitate further drainage. I then held pressure over the areas that were debrided. There was quite a bit of bloody oozing. I used additional pressure and silver nitrate cautery to achieve hemostasis. Eventually, the wound was quite dry and no further purulent fluid was noted. The wound was then dressed with Xeroform gauze and 4x4s. Finger and hand were wrapped with a 3 in Kerlix roll. Finally, a 3 in [place] wrap was used to further wrap the bandages and hand as well as wrist to secure the dressing. Patient was very comfortable and tolerated the procedure well. Estimated Blood Loss -5 Drains No Packing No Pathology Other (Only cultures were sent) Complications None Condition Stable Disposition No change [facility] Billing Surgery - Charge Forward: Surgery Billing (Excisional debridement skin and subcutaneous 3rd finger right hand, distal phalanx, 0.5 x 2 cm. Drainage of complex paronychia right 3rd finger.)
[2024-02-27 15:22] VITALS: BP 138/110; PULSE 72; RESP 18; TEMP 36.3; O2SAT 97
[2024-02-27] MEDS: HYDROcodone/acetaminophen (*CRX) 10-325 MG TABLET 1 TAB PO (17:49)
[2024-02-27] MEDS: MORPHINE SULFATE (*CRX) 2 MG/ML INJ IV PUSH (19:20)
[2024-02-27] MEDS: IBUPROFEN IV 800 MG/200 ML 800 MG/200 ML BAG 400 MG IVPB (19:51)
[2024-02-27 21:57] VITALS: BP 152/99; PULSE 92; RESP 18; TEMP 36.5; O2SAT 97
[2024-02-28] MEDS: VANCOMYCIN 1,500 MG/NS 500 ML 1,500 MG/500 ML BAG 250 MG IVPB ×2 (01:34→09:24)
[2024-02-28] MEDS: HYDROcodone/acetaminophen (*CRX) 10-325 MG TABLET 1 TAB PO ×4 (01:37→18:20)
[2024-02-28 05:44] VITALS: BP 152/81; PULSE 63; RESP 20; TEMP 36.4; O2SAT 99
[2024-02-28 05:48] LABS: Basophils Absolute Auto 0.1 K/mm3 (0.0-0.1); Basophils Percent Auto 1.2 % (0.2-1.2); Eosinophils Absolute Auto 0.8 K/mm3 (0-0.3); Eosinophils Percent Auto 8.5 % (0-4.4); Hematocrit 43.8 % (42.0-52.0); Hemoglobin 14.3 g/dL (14.0-18.0); Immature Granulocyte Absolute 0.09 K/mm3 (0.00-0.031); Lymphocytes Absolute Auto 2.64 K/mm3 (0.9-3.2); Lymphocytes Percent Auto 28.4 % (18.3-44.2); Mean Corpuscular HGB Conc 32.6 g/dl (32-36); Mean Corpuscular Hemoglobin 29.5 pg (26-34); Mean Corpuscular Volume 90.3 fl (80-100); Mean Platelet Volume 10.1 fl (7.4-10.4); Monocytes Absolute Auto 0.9 K/mm3 (0.1-0.6); Monocytes Percent Auto 9.9 % (2.6-8.5); Neutrophils Absolute Auto 4.7 K/mm3 (1.3-6.7); Platelet Count Result 339 k/mm3 (150-375); Red Blood Count 4.85 M/mm3 (4.6-6.20); Red Cell Distribution Width 12.1 % (11.5-14.5); White Blood Count 9.3 K/mm3 (4.5-10.0)
[2024-02-28 06:05] LABS: Alanine Aminotransferase 23 U/L (6-50); Albumin Level 3.8 g/dL (3.5-5.1); Alkaline Phosphatase 45 U/L (38-126); Anion Gap 8 mmol/L (4-12); Aspartate Amino Transferase 21 U/L (17-59); Bilirubin,Total < 0.1 mg/dL (0.2-1.3); Blood Urea Nitrogen 14 mg/dL (9-20); Calcium 8.7 mg/dL (8.4-10.2); Carbon Dioxide 25 mmol/L (22-30); Chloride 102 mmol/L (98-107); Estimated CRCL calculation 121 ml/min; Estimated Glomerular Filt Rate > 60; Glucose 98 mg/dL (65-110); Potassium 4.4 mmol/L (3.4-5.0); Sodium 135 mmol/L (137-145)
--- NOTE | 2024-02-28 09:15 | PM.IMPN ---
Progress Note: A&P Assessment and Plan (1) Abscess around fingernail of right hand: Code(s): L03.011 - Cellulitis of right finger Status: Acute (2) Paronychia: Status: Acute Plan This is a 43-year-old male with a significant past medical history cocaine and methamphetamine abuse who presents with right hand 3rd digit infection that he has had for over a week. (1) Abscess around fingernail of right hand: Code(s): L03.011 - Cellulitis of right finger Status: Acute Assessment and Plan: 02/24/24: Paronychia to 3rd digit of right hand, X-ray of right hand, 3rd digit shown asymmetric cortical contour with increased lucency at the ulnar side of the tuft of the right 3rd distal phalanx raising concern for possible osteomyelitis Abscess was drained in the ED Patient was started on vancomycin, continue monotherapy Continue pain control Plastic surgery consulted Blood culture negative obtained wound culture from the abscess Pending report continue current antibiotics 02/26 Gram positive cocci from wound culture. 02/27Plastic surgery consulted, and the still not performed, abscess persists, consult general surgeon for evaluation and treat s/p Excisional debridement skin and subcutaneous with drainage of complex paronychia, wound culture grows Staphylococcus aureus group B streptococci sensitive to penicillin Changed to Augmentin today (2) Paronychia: Status: Acute Assessment and Plan: see above (3) Methamphetamine abuse: Code(s): F15.10 - Other stimulant abuse, uncomplicated Status: Inactive Assessment and Plan: 02/24/24: Reports he last used yesterday Watched for withdrawal symptoms Ativan ordered q.6 hours for agitation (4) Cocaine abuse: Code(s): F14.10 - Cocaine abuse, uncomplicated Status: Inactive Assessment and Plan: Of note I have discussed patient about risk of using illicit drugs, advised patient stop using illicit drugs patient except my advice Patient had argument with patient mother today, he was not happy after conversation. But Patient denied any ideation of suicide attempt and plans Subjective Date/time seen: 02/28/24 09:15 Interval history: I saw exam patient today, patient underwent excisional debridement skin and subcutaneous with drainage of complex paronychia yesterday, pain is tolerable. Patient denies headache, chest pain, abdomen pain, nausea vomiting diarrhea dysuria. Exam Narrative: GENERAL: Pleasant, in no acute distress. Well-nourished. - EYES: EOMI. Anicteric. - HENT: Moist mucous membranes. - LUNGS: Clear to auscultation bilaterally, no wheezing, rhonchi, or rales. - CARDIOVASCULAR: Regular rate and rhythm. No murmur. No JVD. - ABDOMEN: Soft, non-tender and non-distended. No palpable masses. - EXTREMITIES: No edema. Peripheral pulses 2+. Non-tender. - NEUROLOGIC: No focal neurological deficits. CN II-XII grossly intact. - PSYCHIATRIC: Awake, Alert and oriented x 3. Appropriate mood and affect. - SKIN: Postop of I and D of right hand 3rd finger, wound is well dressed, dressing is dry and clean - LYMPH: No cervical lymphadenopathy. Objective Data Vital Signs Vital Signs: Vital Signs - 24 hr 02/27/24 15:22 02/27/24 20:00 02/27/24 21:57 Temperature 97.4 F L 97.7 F Pulse Rate 72 92 Respiratory Rate 18 18 Blood Pressure 138/110 H 152/99 H Pulse Oximetry 97 97 Oxygen Delivery Room Air 02/28/24 05:44 Temperature 97.5 F L Pulse Rate 63 Respiratory Rate 20 Blood Pressure 152/81 H Pulse Oximetry 99 Oxygen Delivery Intake/Output Intake/Output: Intake & Output 02/25/24 02/26/24 02/27/24 02/28/24 23:59 23:59 23:59 23:59 Intake Total 2460 4580 4370 1100 Balance 2460 4580 4370 1100 Meds/Results Medications: Active Medications Generic Name Dose Route Start Last Admin Trade Name Freq PRN Reason Stop Dose Admin Acetaminophen 500 mg
--- NOTE | 2024-02-28 09:15 | P.PNIM_ITS ---
Progress Note: A&P Assessment and Plan (1) Abscess around fingernail of right hand: Code(s): L03.011 - Cellulitis of right finger Status: Acute (2) Paronychia: Status: Acute Plan This is a 43-year-old male with a significant past medical history cocaine and methamphetamine abuse who presents with right hand 3rd digit infection that he has had for over a week. (1) Abscess around fingernail of right hand: Code(s): L03.011 - Cellulitis of right finger Status: Acute Assessment and Plan: 02/24/24: * Paronychia to 3rd digit of right hand, * X-ray of right hand, 3rd digit shown asymmetric cortical contour with increas ed lucency at the ulnar side of the tuft of the right 3rd distal phalanx raising concern for possible osteomyelitis * Abscess was drained in the ED * Patient was started on vancomycin, continue monotherapy * Continue pain control * Plastic surgery consulted Blood culture negative obtained wound culture from the abscess Pending report continue current antibiotics 02/26 Gram positive cocci from wound culture. 02/27Plastic surgery consulted, and the still not performed, abscess persists, consult general surgeon for evaluation and treat s/p Excisional debridement skin and subcutaneous with drainage of complex paronychia, wound culture grows Staphylococcus aureus group B streptococci sensitive to penicillin Changed to Augmentin today (2) Paronychia: Status: Acute Assessment and Plan: see above (3) Methamphetamine abuse: Code(s): F15.10 - Other stimulant abuse, uncomplicated Status: Inactive Assessment and Plan: 02/24/24: * Reports he last used yesterday * Watched for withdrawal symptoms * Ativan ordered q.6 hours for agitation (4) Cocaine abuse: Code(s): F14.10 - Cocaine abuse, uncomplicated Status: Inactive Assessment and Plan: Of note I have discussed patient about risk of using illicit drugs, advised patient stop using illicit drugs patient except my advice Patient had argument with patient mother today, he was not happy after conversation. But Patient denied any ideation of suicide attempt and plans Subjective Date/time seen: 02/28/24 09:15 Interval history: I saw exam patient today, patient underwent excisional debridement skin and subcutaneous with drainage of complex paronychia yesterday, pain is tolerable. Patient denies headache, chest pain, abdomen pain, nausea vomiting diarrhea dysuria. Exam Narrative: GENERAL: Pleasant, in no acute distress. Well-nourished. - EYES: EOMI. Anicteric. - HENT: Moist mucous membranes. - LUNGS: Clear to auscultation bilateral ly, no wheezing, rhonchi, or rales. - CARDIOVASCULAR: Regular rate and rhyth m. No murmur. No JVD. - ABDOMEN: Soft, non-tender and non-dist ended. No palpable masses. - EXTREMITIES: No edema. Peripheral puls es 2+. Non-tender. - NEUROLOGIC: No focal neurological defi cits. CN II-XII grossly intact. - PSYCHIATRIC: Awake, Alert and oriented x 3. Appropriate mood and affect. - SKIN: Postop of I and D of right hand 3rd finger, wound is well dressed, dressing is dry and clean
[2024-02-28] MEDS: ENOXAPARIN 40 MG/0.4 ML SYRINGE SUB-Q (09:22)
[2024-02-28] MEDS: NICOTINE (*PBKC) 14 MG PATCH 1 PATCH TRANSDERM (09:23)
--- NOTE | 2024-02-28 10:47 | PM.PNGS ---
Progress Note: A&P Assessment and Plan (1) Paronychia: Status: Acute Assessment and Plan: Extensive. Debridement as well as I and D performed yesterday. Still having some pain but when okay with hospitalist, patient can go home with daily dressing changes and on clindamycin 300 mg p.o. t.i.d. for 5 days. He can see me in the office in 10 days. (2) Abscess around fingernail of right hand: Code(s): L03.011 - Cellulitis of right finger Status: Acute Assessment and Plan: Status post debridement and I and D yesterday (3) Staphylococcus infection: Code(s): B95.8 - Unspecified staphylococcus as the cause of diseases classified elsewhere Status: Acute Assessment and Plan: Oxacillin sensitive Staph aureus. Home on clindamycin or other appropriate oral antibiotic. Subjective Subjective Date/Time Seen: 02/28/24 10:47 Post Op day: 1 Patient reports: still having pain (Right 3rd finger), tolerating a regular diet and afebrile Review of Systems Review of Systems: All systems reviewed & are unremarkable except as noted in HPI and below (HPI) Exam Const: General: comfortable, alert and awake Extrem: Right upper extremity: Extremity exam: right hand (Dressing removed. Wound is dry, no purulence) tenderness and swelling; no crepitus Objective Data Vital Signs Vital Signs: Vital Signs - 24 hr 02/27/24 15:22 02/27/24 20:00 02/27/24 21:57 Temperature 36.3 C L 36.5 C Pulse Rate 72 92 Respiratory Rate 18 18 Blood Pressure 138/110 H 152/99 H Pulse Oximetry 97 97 Oxygen Delivery Room Air 02/28/24 05:44 Temperature 36.4 C L Pulse Rate 63 Respiratory Rate 20 Blood Pressure 152/81 H Pulse Oximetry 99 Oxygen Delivery Intake/Output Intake/Output: Intake & Output 02/25/24 02/26/24 02/27/24 02/28/24 23:59 23:59 23:59 23:59 Intake Total 2460 4580 4370 1340 Balance 2460 4580 4370 1340 Meds/Results Medications: Active Medications Generic Name Dose Route Start Last Admin Trade Name Freq PRN Reason Stop Dose Admin Acetaminophen 500 mg 02/27/24 15:11 Acetaminophen 500 Mg Tablet PO Q6H PRN Pain Rated 1-3 Hydrocodone Bitart/Acetaminophen 1 tab 02/27/24 15:11 Hydrocodone/Acetaminophen (*Crx) 5-325 Mg Tablet PO Q4H PRN Pain Rated 4-6 Hydrocodone Bitart/Acetaminophen 1 tab 02/27/24 15:11 02/28/24 09:23 Hydrocodone/Acetaminophen (*Crx) 10-325 Mg Tablet PO 1 tab Q4H PRN Administration Pain Rated 7-10 Enoxaparin Sodium 40 mg 02/28/24 09:00 02/28/24 09:22 Enoxaparin 40 Mg/0.4 Ml Syringe SUB-Q 40 mg DAILY BROOKE Administration Vancomycin HCl 1,500 mg in 500 mls @ 250 mls/hr 02/26/24 10:00 02/28/24 09:24 Vancomycin 1,500 Mg/Ns 500 Ml IVPB 250 mls/hr Q8H BROOKE Administration Ibuprofen 800 mg in 200 mls @ 400 mls/hr 02/27/24 15:11 02/27/24 20:21 Caldolor 800 Mg/200 Ml IVPB Infused Q6H PRN Infusion Breakthrough Pain Rated 1-3 or NPO Morphine Sulfate 4 mg 02/27/24 15:11 Morphine Sulfate (*Crx) 4 Mg/Ml Inj IV PUSH Q2H PRN Breakthrough Pain Rated 7-10 or NPO Morphine Sulfate 2 mg 02/27/24 15:11 02/27/24 19:20 Morphine Sulfate (*Crx) 2 Mg/Ml Inj IV PUSH 2 mg Q2H PRN Administration Breakthrough Pain Rated 4-6 or NPO Naloxone HCl 0.1 mg 02/27/24 15:11 Naloxone Hcl 0.4 Mg/Ml Vial IV PUSH Q2M PRN Opiate Reversal Nicotine 1 patch 02/27/24 13:13 02/28/24 09:23 Nicotine (*Pbkc) 14 Mg Patch TRANSDERM 1 patch DAILY BROOKE Administration Ondansetron HCl 4 mg 02/24/24 17:20 Ondansetron Inj 4 Mg/2 Ml Vial IV PUSH Q6H PRN Nausea And Vomiting Radiology Results: ITS Impressions Chest X-Ray 02/24/24 14:05 Impression: Normal chest. Finger X-Ray 02/24/24 14:11 IMPRESSION: 1. Asymmetric cortical contour with increased lucency at the ulnar side of the tuft of the right third distal phalanx which raises some
[2024-02-28 14:00] VITALS: BP 133/100; PULSE 96; RESP 18; TEMP 36.3; O2SAT 95
[2024-02-28] MEDS: AMOXICILLIN/CLAVULANATE K 875-125 MG TAB 1 TABLET PO (18:20)
[2024-02-28 21:01] VITALS: BP 144/91; PULSE 87; RESP 22; TEMP 36.6; O2SAT 97
[2024-02-29] MEDS: HYDROcodone/acetaminophen (*CRX) 10-325 MG TABLET 1 TAB PO (00:24)
[2024-02-29 05:51] LABS: Basophils Absolute Auto 0.2 K/mm3 (0.0-0.1); Basophils Percent Auto 1.6 % (0.2-1.2); Eosinophils Absolute Auto 0.9 K/mm3 (0-0.3); Eosinophils Percent Auto 9.2 % (0-4.4); Hematocrit 43.5 % (42.0-52.0); Hemoglobin 14.1 g/dL (14.0-18.0); Immature Granulocyte Absolute 0.14 K/mm3 (0.00-0.031); Immature Granulocyte Percent A 1.5 % (0-0.5); Lymphocytes Absolute Auto 2.75 K/mm3 (0.9-3.2); Lymphocytes Percent Auto 29.9 % (18.3-44.2); Mean Corpuscular HGB Conc 32.4 g/dl (32-36); Mean Corpuscular Hemoglobin 29.2 pg (26-34); Mean Corpuscular Volume 90.1 fl (80-100); Mean Platelet Volume 9.9 fl (7.4-10.4); Neutrophils Absolute Auto 4.3 K/mm3 (1.3-6.7); Neutrophils Percent Auto 46.8 % (45.5-73.1); Platelet Count Result 348 k/mm3 (150-375); Red Blood Count 4.83 M/mm3 (4.6-6.20); Red Cell Distribution Width 12.2 % (11.5-14.5); White Blood Count 9.2 K/mm3 (4.5-10.0)
[2024-02-29 06:00] VITALS: BP 143/98; PULSE 84; RESP 18; TEMP 36.2; O2SAT 97
[2024-02-29 06:02] LABS: Alanine Aminotransferase 27 U/L (6-50); Albumin Level 3.8 g/dL (3.5-5.1); Alkaline Phosphatase 58 U/L (38-126); Anion Gap 9 mmol/L (4-12); Aspartate Amino Transferase 25 U/L (17-59); Bilirubin,Total 0.2 mg/dL (0.2-1.3); Blood Urea Nitrogen 14 mg/dL (9-20); Calcium 8.6 mg/dL (8.4-10.2); Carbon Dioxide 27 mmol/L (22-30); Chloride 101 mmol/L (98-107); Estimated CRCL calculation 137 ml/min; Estimated Glomerular Filt Rate > 60; Glucose 127 mg/dL (65-110); Potassium 4.2 mmol/L (3.4-5.0); Sodium 137 mmol/L (137-145)
[2024-02-29 08:00] VITALS: O2SAT 97
[2024-02-29] MEDS: AMOXICILLIN/CLAVULANATE K 875-125 MG TAB 1 TABLET PO (09:06)
[2024-02-29] MEDS: buPROPion HCL XL (24 HR) 150 MG TABCR PO (09:06)
[2024-02-29] MEDS: NICOTINE (*PBKC) 14 MG PATCH 1 PATCH TRANSDERM (09:07)
[2024-02-29] MEDS: ENOXAPARIN 40 MG/0.4 ML SYRINGE SUB-Q (09:07)
[2024-02-29] MEDS: PANTOPRAZOLE 40 MG TABLET PO (09:08)
[2024-02-29] MEDS: VENLAFAXINE HCL XR 75 MG CAP.ER.24H 150 MG PO (09:08)
[2024-02-29] MEDS: SIMVASTATIN 20 MG TABLET PO (09:08)
--- NOTE | 2024-02-29 12:33 | PM.DS ---
DS: Admitting Diagnosis Discharge Date 02/29/2024 Admitting Diagnosis Abscess right hand finger DS: Discharge Diagnosis Discharge Diagnosis (1) Abscess around fingernail of right hand: Code(s): L03.011 - Cellulitis of right finger Status: Acute (2) Paronychia: Status: Acute Plan This is a 43-year-old male with a significant past medical history cocaine and methamphetamine abuse who presents with right hand 3rd digit infection that he has had for over a week. (1) Abscess around fingernail of right hand: Code(s): L03.011 - Cellulitis of right finger Status: Acute Assessment and Plan: 02/24/24: Paronychia to 3rd digit of right hand, X-ray of right hand, 3rd digit shown asymmetric cortical contour with increased lucency at the ulnar side of the tuft of the right 3rd distal phalanx raising concern for possible osteomyelitis Abscess was drained in the ED Patient was started on vancomycin, continue monotherapy Continue pain control Plastic surgery consulted Blood culture negative obtained wound culture from the abscess Pending report continue current antibiotics 02/26 Gram positive cocci from wound culture. 02/27Plastic surgery consulted, and the still not performed, abscess persists, consult general surgeon for evaluation and treat s/p Excisional debridement skin and subcutaneous with drainage of complex paronychia, wound culture grows Staphylococcus aureus group B streptococci sensitive to penicillin Changed to Augmentin today (2) Paronychia: Status: Acute Assessment and Plan: see above (3) Methamphetamine abuse: Code(s): F15.10 - Other stimulant abuse, uncomplicated Status: Inactive Assessment and Plan: 02/24/24: Reports he last used yesterday Watched for withdrawal symptoms Ativan ordered q.6 hours for agitation (4) Cocaine abuse: Code(s): F14.10 - Cocaine abuse, uncomplicated Status: Inactive Assessment and Plan: Of note I have discussed patient about risk of using illicit drugs, advised patient stop using illicit drugs patient except my advice Patient had argument with patient mother today, he was not happy after conversation. But Patient denied any ideation of suicide attempt and plans DS: Summary Hospital Course Reason for hospitalization: Abscess right hand finger Hospital Course: 43 years old male was admitted complained of having infection patient was given IV antibiotic surgery was done Patient culture showed staph and strep sensitive to clindamycin. Today patient is feeling better and was discharged home in stable condition. Status at Discharge Cognitive/behavioral status at discharge: Stable Time Spent with Patient Time attestation: Total time spent providing and/or coordinating discharge services: 30 minutes Exam Narrative: GENERAL: Pleasant, in no acute distress. Well-nourished. - EYES: EOMI. Anicteric. - HENT: Moist mucous membranes. - LUNGS: Clear to auscultation bilaterally, no wheezing, rhonchi, or rales. - CARDIOVASCULAR: Regular rate and rhythm. No murmur. No JVD. - ABDOMEN: Soft, non-tender and non-distended. No palpable masses. - EXTREMITIES: No edema. Peripheral pulses 2+. Non-tender. - NEUROLOGIC: No focal neurological deficits. CN II-XII grossly intact. - PSYCHIATRIC: Awake, Alert and oriented x 3. Appropriate mood and affect. - SKIN: Postop of I and D of right hand 3rd finger, wound is well dressed, dressing is dry and clean - LYMPH: No cervical lymphadenopathy. DS: Data Data Completed and Pending Labs on day of discharge: Labs from last 24 hours 02/29/24 05:31 WBC 9.2 RBC 4.83 Hgb 14.1 Hct 43.5 MCV 90.1 MCH 29.2 MCHC 32.4 RDW 12.2 Plt Count 348 MPV 9.9 Immature Gran % (Auto) 1.5 H Neut % (Auto) 46.8 Lymph % (Auto) 29.9 Hale % (Auto) 11.0 H Eos % (Auto) 9.2 H Baso % (Auto) 1.6 H Lymph # (Auto) 2.75 Hale # (Auto) 1.0 H Eos
== END 2024-02-29 13:45 | disposition home or self-care (01) | DRG 383 ==
LOC: ANHED 16:24 → ANH3MED 16:41
PROVIDERS: Nurse Practitioner Acute Care; Physician Assistant; Admitting Provider Family Medicine; Emergency Provider Registered Nurse; Visit Provider Internal Medicine
DX: L03.011 Cellulitis of right finger (principal); B95.61 Methicillin susceptible Staphylococcus aureus infection as the cause of diseases classified elsewhere; B95.1 Streptococcus, group B, as the cause of diseases classified elsewhere; F15.10 Other stimulant abuse, uncomplicated; F14.10 Cocaine abuse, uncomplicated
CPT/HCPCS: 26010; 36415; 71046; 73140; 80048; 80053; 80202; 80307; 81001; 83605; 85025; 85610; 85652; 85730; 86140; 87040; 87070; 87077; 87086; 87181; 87205; 96361; 96365; 96366; 96374; 96375; 96376; 99285; A9270; G0378; G0379; J1650; J1741; J2060; J2270; J3370; J7030

== ENCOUNTER 2024-04-19 08:04 | Emergency (ER) | payer OTHER, SELFPAY ==
--- NOTE | ~2024-04-19 | CT_ITS ---
Non-contrast CT scan of the Abdomen and Pelvis Clinical indication: Flank pain, hematuria Technique: 2.5 mm axial scans were obtained through the abdomen and pelvis without intravenous or or al contrast. Dose reduction technique was used on this scan by utilizing automated exposure control a nd iterative reconstruction technique. The dose-length product (DLP) was 878.68 mGy-cm. Findings: Images through the lung bases reveal a few subcentimeter groundglass nodule/opacities at t he left lung base. There is a 4 mm distal right ureteral stone, with moderate right hydroureteronephrosis to this level. Numerous additional nonobstructing renal stones are present, measuring up to 7 mm in diameter. A few punctate nonobstructing left renal stones are present. No left ureteral stone or left hydronephrosis . The liver, spleen, pancreas, gallbladder, and adrenals appear normal. There is no aortic aneurysm. There is no evidence of bowel obstruction. Images through the pelvis were performed. There is no evidence of ascites or lymphadenopathy. Urinary bladder unremarkable. No pelvic mass seen. There are bilateral L5 pars interarticularis defects, wit h minimal grade 1 anterolisthesis of L5 over S1. Impression: 4 mm distal right ureteral stone moderate right hydroureteronephrosis. Additional bilateral nonobstructing nephrolithiasis, as detailed above. Bilateral L5 pars interarticularis defects, as detailed above. Reviewed, dictated and finalized at [facility]. Impression: 4 mm distal right ureteral stone moderate right hydroureteronephrosis. Additional bilateral nonobstructing nephrolithiasis, as detailed above. Bilateral L5 pars interarticularis defects, as detailed above.
--- NOTE | 2024-04-19 08:13 | ED.GENADULT ---
HPI - General Adult General Chief complaint: Abdominal Pain Stated complaint: abd pain Time Seen by Provider: 04/19/24 08:05 History of Present Illness HPI narrative: 43-year-old male presenting to the emergency department for evaluation for right flank and right lower quadrant pain. Patient reports that the symptoms started this morning. Patient denies any prior history of abdominal surgeries denies any prior history of kidney stones. Patient denies any hematuria. Patient states the pain started when he woke up this morning. Related Data Home Medications Medication Instructions Recorded Confirmed alfuzosin 10 mg tablet,extended 10 mg PO DAILY 02/28/24 02/28/24 release 24 hr bupropion HCl 150 mg 24 hr tablet, 150 mg PO DAILY 02/28/24 02/28/24 extended release ergocalciferol (vitamin D2) 1,250 50,000 unit PO WEEKLY 02/28/24 02/28/24 mcg (50,000 unit) capsule omeprazole 20 mg capsule,delayed 20 mg PO DAILY 02/28/24 02/28/24 release propranolol 80 mg capsule,24 80 mg PO DAILY 02/28/24 02/28/24 hr,extended release simvastatin 20 mg tablet 20 mg PO DAILY 02/28/24 02/28/24 venlafaxine 150 mg 150 mg PO DAILY 02/28/24 02/28/24 capsule,extended release 24 hr Allergies Allergy/AdvReac Type Severity Reaction Status Date / Time No Known Allergies Allergy Mild Verified 04/19/24 08:25 Review of Systems Review of Systems: All systems reviewed & are unremarkable except as noted in HPI and below PMFSH Past Medical History Medical History Cocaine abuse Marijuana abuse Methamphetamine abuse Social History Social History Smoking status: Unknown if ever smoked Alcohol intake: unknown Substance use: current Substance use type: marijuana, crack/cocaine, methamphetamine and unknown Spiritual care concerns: No Exam Narrative: APPEARANCE: Uncomfortable. HEAD: normocephalic, atraumatic. EYES: PERRLA/EOMI, conjunctivae clear. NOSE: Normal no drainage EARS:TMS clear with good light reflex. THROAT: Pharynx clear, no exudate. NECK: Supple. No adenopathy, no masses. RESPIRATORY: Airway patent, respirations nonlabored. Clear to auscultation bilaterally, no rales, rhonchi, wheezing. CARDIOVASCULAR: Regular rate and rhythm without murmurs rubs or gallops. ABDOMINAL: Right CVA and right lower quadrant tenderness to palpation MUSCULOSKELETAL: Moves all extremities. Strength/ROM intact, No edema, No calf tenderness. NEURO: Alert. Cranial nerves II through XII intact. Good gait. Good coordination SKIN: Warm, dry. Normal Color Course Vital Signs Vital signs: Vital Signs Pulse Rate 71 04/19/24 09:49 Respiratory Rate 18 04/19/24 09:49 Blood Pressure 173/112 H 04/19/24 09:49 Pulse Oximetry 96 04/19/24 09:49 Pulse Rate 71 04/19/24 09:49 Respiratory Rate 18 04/19/24 09:49 Blood Pressure 173/112 H 04/19/24 09:49 Pulse Oximetry 96 04/19/24 09:49 Medical Decision Making MDM Narrative Medical decision making narrative: 43-year-old male presents emergency department for evaluation for flank pain. Patient is afebrile but does have a leukocytosis of 10.6 and hemoglobin of 14.4. INR 0.9. No acute abnormalities on the patient's CMP UA was positive for red blood cells. CT scan does show a 4 mm ureteral calculi. Patient was updated the results of the workup patient does feel improved with treatment. Patient and family are updated on the diagnosis, treatment plan for home and on the importance of close follow-up with Urology. Patient was provided medications for pain control for home along with instructions how to strain his urine. All questions concerns were addressed patient was well-appearing at time of discharge. Differential Diagnosis Differential Diagnosis: Hydronephrosis, UTI, ureteral calculi, flank pain, colitis, diverticulitis Vital Signs Vital Signs: Vital
[2024-04-19] MEDS: SODIUM CHLORIDE 0.9% IV 1,000 ML 999 ML IV CONT (08:17)
[2024-04-19] MEDS: HYDROmorphone HCL INJ (*CRX) 1 MG/ML SYR 0.5 MG IV PUSH ×2 (08:18→09:43)
[2024-04-19] MEDS: ONDANSETRON INJ 4 MG/2 ML VIAL IV PUSH (08:18)
[2024-04-19 08:36] LABS: Basophils Absolute Auto 0.1 K/mm3 (0.0-0.1); Basophils Percent Auto 0.8 % (0.2-1.2); Eosinophils Absolute Auto 0.7 K/mm3 (0-0.3); Eosinophils Percent Auto 6.9 % (0-4.4); Hematocrit 45.2 % (42.0-52.0); Hemoglobin 14.4 g/dL (14.0-18.0); Immature Granulocyte Absolute 0.13 K/mm3 (0.00-0.031); Immature Granulocyte Percent A 1.2 % (0-0.5); Lymphocytes Percent Auto 21.7 % (18.3-44.2); Mean Corpuscular HGB Conc 31.9 g/dl (32-36); Mean Corpuscular Hemoglobin 28.6 pg (26-34); Mean Corpuscular Volume 89.9 fl (80-100); Mean Platelet Volume 10.1 fl (7.4-10.4); Monocytes Percent Auto 9.1 % (2.6-8.5); Neutrophils Absolute Auto 6.4 K/mm3 (1.3-6.7); Neutrophils Percent Auto 60.3 % (45.5-73.1); Platelet Count Result 360 k/mm3 (150-375); Red Blood Count 5.03 M/mm3 (4.6-6.20); Red Cell Distribution Width 12.8 % (11.5-14.5); White Blood Count 10.6 K/mm3 (4.5-10.0)
[2024-04-19 08:45] LABS: INR 0.9; Partial Thromboplastin Time 25.7 Seconds (22.3-36.8); Prothrombin Time 12.3 Seconds (11.1-14.7)
[2024-04-19 08:51] LABS: Alanine Aminotransferase 21 U/L (6-50); Albumin Level 4.4 g/dL (3.5-5.1); Alkaline Phosphatase 73 U/L (38-126); Anion Gap 11 mmol/L (4-12); Aspartate Amino Transferase 20 U/L (17-59); Bilirubin,Total 0.4 mg/dL (0.2-1.3); Blood Urea Nitrogen 19 mg/dL (9-20); Calcium 8.8 mg/dL (8.4-10.2); Carbon Dioxide 21 mmol/L (22-30); Chloride 104 mmol/L (98-107); Estimated Glomerular Filt Rate > 60; Glucose 136 mg/dL (65-110); Lipase 132 U/L (23-300); Potassium 4.6 mmol/L (3.4-5.0); Sodium 136 mmol/L (137-145)
[2024-04-19 09:15] LABS: Add Urine Microscopic? YES; Appearance Urine Clear (Clear); Bacteria Urine None Seen /hpf; Bilirubin Urine Negative (Negative); Blood Urine 3+ (Negative); Color Urine Yellow (Yellow); Glucose Urine UA Negative (Negative); Ketones Urine Negative (Negative); Leukocyte Esterase Ur Negative LEU/UL (Negative); Nitrate Urine Negative (Negative); Non Pathogenic Casts 0-2; Protein Urine Negative (Negative); RBC Urine >100 /hpf (0-2); Specific Grav Ur 1.021 (1.001-1.035); Squamous Epithelial Cell Urine None Seen /hpf (Few); Urobilinogen Urine 0.2 mg/dL (<2.0); WBC Urine 0-5 /hpf (0-3)
[2024-04-19] MEDS: METOCLOPRAMIDE HCL INJ 10 MG/2 ML VIAL IV PUSH (09:43)
[2024-04-19 09:49] VITALS: BP 173/112; PULSE 71; RESP 18; O2SAT 96
[2024-04-19] MEDS: HYDROcodone/acetaminophen (*CRX) 5-325 MG TABLET 1 TAB PO (10:06)
[2024-04-19] MEDS: KETOROLAC 15 MG/ML VIAL (*BKC) IV PUSH (10:07)
[2024-04-19] MEDS: TAMSULOSIN HCL 0.4 MG CAPSULE PO (10:26)
== END 2024-04-19 10:31 | disposition home or self-care (01) ==
PROVIDERS: Emergency Provider Emergency Medicine
DX: N13.2 Hydronephrosis with renal and ureteral calculous obstruction (principal)
CPT/HCPCS: 36415; 74176; 80053; 81001; 83690; 85025; 85610; 85730; 96361; 96374; 96375; 96376; 99284; A9270; J1171; J1885; J2405; J2765; J7030